=== PATIENT | male | born 1935 | race Two or more races ===

== ENCOUNTER 2024-12-27 02:00 | Inpatient (IN) | payer MEDICARE, OTHER ==
[~2024-12-27] VITALS: Ht 175.3 cm; Wt 90.8 kg
--- NOTE | 2024-12-27 02:14 | ED.PDOC ---
General HPI Comments 89-year-old male currently on Xarelto PT BIBA FOR CC OF PENILE BLEEDING AND URINARY RETENTION X 1 HR. PT REPORTS TAKING XARELTO FOR AFIB. DENIES TRAUMA OR DYSURIA. Chief Complaint: Urinary Time Seen by MD: 02:09 Reviewed notes: Nurses Notes, General Partner Notes, Medications, Allergies Allergies: Coded Allergies: NO KNOWN ALLERGIES (Unverified , 12/27/24) Information Source: Patient Constitutional: denies: chills, diaphoresis, fatigue, fever, malaise, sweats, weakness, others EENTM: denies: blurred vision, double vision, ear bleeding, ear discharge, ear drainage, ear pain, ear ringing, eye pain, eye redness, hearing loss, mouth pain, mouth swelling, nasal discharge, nose bleeding, nose congestion, nose pain, photophobia, tearing, throat pain, throat swelling, voice changes, others Respiratory: denies: cough, hemoptysis, orthopnea, SOB at rest, shortness of breath, SOB with excertion, stridor, wheezing, others Cardiovascular: denies: chest pain, dizzy spells, diaphoresis, Dyspnea on exertion, edema, irregular heart beat, left arm pain, lightheadedness, palpitations, PND, syncope, others Gastrointestinal: denies: abdomen distended, abdominal pain, blood streaked bowels, constipated, diarrhea, dysphagia, difficulty swallowing, hematemesis, melena, nausea, poor appetite, poor fluid intake, rectal bleeding, rectal pain, vomiting, others Genitourinary: reports: hematuria, pain; denies: burning, dysuria, flank pain, frequency, incontinence, penile discharge, penile sore, testicle pain, testicle swelling, urgency, others Neurological: denies: dizziness, fainting, headache, left sided numbness, left sided weakness, numbness, paresthesia, pre-existing deficit, right sided numbness, right sided weakness, seizure, speech problems, tingling, tremors, weakness, others Musculoskeletal: denies: back pain, gout, joint pain, joint swelling, muscle pain, muscle stiffness, neck pain, others Integumetry: denies: bruises, change in color, change in hair/nails, dryness, laceration, lesions, lumps, rash, wounds, others Allergic/Immunocompromised: denies: Difficulty Healing, Frequent Infections, Hives, Itching, others Hematologic/Lymphatic: denies: anemia, blood clots, easy bleeding, easy bruising, swollen glands, others Endocrine: denies: excessive hunger, excessive sweating, excessive thirst, excessive urination, flushing, intolerance to cold, intolerance to heat, unexplained weight gain, unexplained weight loss, others Psychiatric: denies: anxiety, bipolar disorder, depression, hopeless, panic disorder, schizophrenia, sleepless, suicidal, others Physical Exam General Appearance: No Apparent Distress, Normal HEENT: Pharynx Normal Neck: Full Range of Motion, Non-Tender Respiratory: Chest Non-Tender, Lungs Clear, No Respiratory Distress, Normal Breath Sounds Cardiovascular: No Edema, No JVD, No Murmur, No Gallop, Normal Peripheral Pulses, Regular Rate/Rhythm Breast Exam: Deferred Gastrointestinal: No Organomegaly, Non Tender, No Pulsatile Mass, Normal Bowel Sounds, Soft, Suprapubic (Moderate Tenderness) Genitalia: Deferred Pelvic: Deferred Rectal: Deferred Extremities: Normal range of motion, No pedal edema Musculoskeletal : Apperance: Normal Neurologic: Alert, remnants cutter II-XII nml as Tested, No Motor Deficits, Normal Affect, Normal Mood, No Sensory Deficits Cerebellar Function: Normal Reflexes: Normal Skin: Dry, Normal Color, Warm Lymphatic: No Adenopathy Was a procedure done? Was a procedure done?: No Differential Diagnosis Kidney stone (Female): N/A Kidney stone (Male): Pyelonephritis, Urinary obstruction, Urolithiasis, Urinary tract infection X-Ray, Labs, Meds, VS Vital Signs Date Time Temp Pulse Resp B/P (MAP) Pulse Ox O2 Delivery O2 Flow Rate FiO2 12/27/24 04:00 60 20 135/64 (87) 92 12/27/24 02:45 68 14 91 Room Air* 0 21 12/27/24 02:45 98.0 68 14 139/61 (87) 91 98.0 12/27/24 02:02 98.7 83 18 140/88 (105) 98 98.7 Lab Test 12/27/24 03:10 12/27/24 02:15 Range/Units Urine Color Colorless Yellow Urine Clarity Turbid H Clear Urine pH 6.5 5.0-9.0 Urine Specific [place] 1.010 1.001-1.035 Urine Protein Trace H Negative Urine Ketones Negative Negative Urine Blood 3+ H Negative /uL Urine Nitrite 2+ H Negative Urine Bilirubin Negative Negative Urine Urobilinogen Normal Negative mg/dL Urine Leukocyte Esterase 2+ Negative /uL Urine RBC 4702 0 - 3 /hpf Urine Microscopic WBC 18 H 0-3 /HPF Urine Squamous Epithelial Cells None seen <5 /hpf Urine Bacteria None seen None Seen /hpf Urine Mucus Few None Seen Urine Glucose Normal Normal mg/dL White Blood Count 7.0 4.4-10.8 10^3/uL Red Blood Count 5.40 4.5-5.90 10^6/uL Hemoglobin 15.7 13.5-17.5 g/dL Hematocrit 46.7 41.0-53.0 % Mean Corpuscular Volume 86.5 80.0-100.0 fL Mean Corpuscular Hemoglobin 29.0 28.0-32.0 pg Mean Corpuscular Hemoglobin Concent 33.6 32.0-36.0 g/dL Red Cell Distribution Width 15.0 H 11.8-14.3 % Platelet Count 182 140-450 10^3/uL Mean Platelet Volume 7.5 6.9-10.8 fL Neutrophils (%) (Auto) 64.3 37.0-80.0 % Lymphocytes (%) (Auto) 21.2 10.0-50.0 % Monocytes (%) (Auto) 8.8 0.0-12.0 % Eosinophils (%) (Auto) 4.6 0.0-7.0 % Basophils (%) (Auto) 1.1 0.0-2.0 % Neutrophils # (Auto) 4.5 1.6-8.6 10 ^3/uL Lymphocytes # (Auto) 1.5 0.4-5.4 10 ^3/uL Monocytes # (Auto) 0.6 0-1.3 10 ^3/uL Eosinophils # (Auto) 0.3 0-0.8 10 ^3/uL Basophils # (Auto) 0.1 0-0.2 10 ^3/uL Nucleated Red Blood Cells 0.1 % Sodium Level 142 136-145 mmol/L Potassium Level 3.6 3.5-5.1 mmol/L Chloride Level 105 98-107 mmol/L Carbon Dioxide Level 29 20-31 mmol/L Anion Gap 8 5-15 Blood Urea Nitrogen 18 9-23 mg/dL Creatinine 0.82 0.700-1.30 mg/dL Glomerular Filtration Rate Calc 84 >90 mL/min BUN/Creatinine Ratio 22.0 H 10.0-20.0 Serum Glucose 100 74-106 mg/dL Hemoglobin A1c Pending Calcium Level 9.3 8.7-10.4 mg/dL Total Bilirubin 0.6 0.2-1.0 mg/dL Aspartate Amino Transferase (AST) 19 13-40 U/L Alanine Aminotransferase (ALT) 12 7-40 U/L Alkaline Phosphatase 294 H 46-116 U/L Total Protein 6.6 5.7-8.2 g/dL Albumin 4.1 3.2-4.8 g/dL Current Medications Medications (Trade) Dose Ordered Sig/Brandy Route Start Time Stop Time Status Last Admin Ceftriaxone Sodium 50 ml @ 100 mls/hr ONCE ONCE IV 12/27/24 03:45 12/27/24 04:14 DC 12/27/24 04:06 X-Ray, Labs, Meds, VS Comment Admit for urology consult cystitis with gross hematuria. Time of 1ST Reevaluation: 02:12 Reevaluation 1ST: Unchanged Time of 2ND Reevaluation: 04:30 Reevaluation 2ND: Unchanged Patient Education/Counseling: Diagnosis, Treatment, Prognosis, Need For Follow Up Family Education/Counseling: No Family Present Departure 1 Departure Time of Disposition: 03:40 Impression: Primary Impression: Cystitis with hematuria Additional Impression: Hx of half-way use of blood thinners Disposition: 09 ADMITTED INPATIENT Condition: Stable Discharged With: Self Critical Care Note Critical Care Time?: No Stability Stability form required: SAY Wray December 27, 2024 02:14
[2024-12-27 02:37] LABS: Basophils # (auto) 0.1 10 ^3/uL (0-0.2); Basophils % (auto) 1.1 % (0.0-2.0); Eosinophils # (auto) 0.3 10 ^3/uL (0-0.8); Eosinophils % (auto) 4.6 % (0.0-7.0); Hematocrit 46.7 % (41.0-53.0); Hemoglobin 15.7 g/dL (13.5-17.5); Lymphocytes # (auto) 1.5 10 ^3/uL (0.4-5.4); Lymphocytes % (auto) 21.2 % (10.0-50.0); Mean Corpuscular Hgb Conc. 33.6 g/dL (32.0-36.0); Mean Corpuscular Volume 86.5 fL (80.0-100.0); Monocytes # (auto) 0.6 10 ^3/uL (0-1.3); Monocytes % (auto) 8.8 % (0.0-12.0); Neutrophils # (auto) 4.5 10 ^3/uL (1.6-8.6); Neutrophils % (auto) 64.3 % (37.0-80.0); Nucleated Red Blood Cells % 0.1 %; Platelet Count (auto) 182 10^3/uL (140-450)
[2024-12-27 02:45] VITALS: PULSE 68; RESP 14; O2SAT 91
[2024-12-27 02:46] LABS: Alanine Aminotransferase 12 U/L (7-40); Albumin 4.1 g/dL (3.2-4.8); Anion Gap 8 (5-15); Aspartate Aminotransferase 19 U/L (13-40); Bilirubin, Total 0.6 mg/dL (0.2-1.0); Blood Urea Nitrogen 18 mg/dL (9-23); Calcium 9.3 mg/dL (8.7-10.4); Carbon Dioxide 29 mmol/L (20-31); Chloride 105 mmol/L (98-107); Glucose 100 mg/dL (74-106); Potassium 3.6 mmol/L (3.5-5.1); Sodium 142 mmol/L (136-145); Total Protein 6.6 g/dL (5.7-8.2)
[2024-12-27 02:52] LABS: Alkaline Phosphatase 294 U/L (46-116)
[2024-12-27 03:16] LABS: Urine Bacteria None Seen /hpf (None Seen)
[2024-12-27 03:25] LABS: Urine Blood 3+ /uL (Negative); Urine Clarity Turbid (Clear); Urine Color Colorless (Yellow); Urine Mucus FEW (None Seen); Urine Protein, UAD TRACE (Negative); Urine Squamous Epithelial Cell None Seen /hpf (<5); Urine Urobilinogen Normal (Negative); Urine WBC 18 /HPF (0-3); Urine pH 6.5 (5.0-9.0)
[2024-12-27] MEDS: cefTRIAXone 1GM/50ML D5W 50 ML IV ONE (04:06)
[2024-12-27] MEDS ORDERED: DEXTROSE (50%) 50ML SYRG IV PRN (05:00)
[2024-12-27] MEDS ORDERED: HYDROcodone-ACET 5/325MG TAB PO PRN (05:00)
[2024-12-27] MEDS ORDERED: MORPHINE SULFATE INJ 2 MG/ml SYRG IV PRN (05:30)
[2024-12-27] MEDS ORDERED: NITROGLYCERIN 0.4 MG SL TAB SL PRN (05:30)
--- NOTE | 2024-12-27 05:32 | DVHHP2 ---
History of Present Illness Reason for Visit: Cystitis with hematuria History of Present Illness The patient is a 89-year-old male with past medical history of AFib, hypertension, hyperlipidemia, and vascular disease who presented to [facility] ED with complaint of penile bleeding urinary retention. The patient was seen and evaluated in the ED, laboratory data shows WBC 7.0, platelets 182, sodium 142, potassium 3.6, BUN 18, creatinine 0.82, glucose 100, blood pressure 139/69, heart rate 68, temperature 98.0 F, O2 saturation 91% on oxygen. Urinalysis positive for urinary tract infection. Patient was started on IV Rocephin, please see medication orders section in the computer. On my assessment, patient denied chest pain, no headache, no dizziness, no diaphoresis, currently on oxygen, no diarrhea, no nausea, no vomiting, no fever, no chills. Patient was admitted for further evaluation and medical management. Past Medical History AFib, HLD, HTN, vascular disease Past Surgical History Denies all surgeries Family History Reviewed, noncontributory to the management of this case. Past Social History The patient lives at home, denies smoking, alcohol or illicit drugs abuse. Review of Systems Constitutional: Yes: Weakness; No: Fever, Chills, Sweats, Malaise, Other Eyes: No: Pain, Vision change, Conjunctivae inflammation, Eyelid inflammation, Other, Redness ENT: No: Ear pain, Ear discharge, Nose pain, Nose discharge, Nose congestion, Mouth pain, Mouth swelling, Throat pain, Throat swelling, Other Respiratory: No: Cough, Dry, Shortness of breath, SOB with excertion, Wheezing, Hemoptysis, Pleuritic Pain, Sputum, Wheezing, Other Cardiovascular: No: Chest Pain, Palpitations, Orthopnea, Paroxysmal Noc. Dyspnea, Edema, Lt Headedness, Other Gastrointestinal: No: Nausea, Vomiting, Abdominal Pain, Diarrhea, Constipation, Melena, Hematochezia, Other Genitourinary: Dysuria; No Frequency, No Incontinence; Hematuria; No Retention, No Other Musculoskeletal: No: other, neck pain, shoulder pain, arm pain, back pain, hand pain, leg pain, foot pain Skin: No: Rash, Lesions, Jaundice, Bruising, Other Neurological: No: Weakness, Numbness, Incoordination, Change in speech, Confusion, Seizures, Other Allergies: Coded Allergies: NO KNOWN ALLERGIES (Unverified , 12/27/24) Medications Current Medications Medications Dose Ordered Sig/Brandy Route Start Time Stop Time Status Last Admin Dose Admin Ceftriaxone Sodium 50 ml @ 100 mls/hr DAILY@09 IV 12/27/24 09:00 Lisinopril 20 mg DAILY PO 12/27/24 10:00 Tamsulosin HCl 0.4 mg QPM PO 12/27/24 18:00 Atorvastatin Calcium 40 mg HS PO 12/27/24 22:00 Rivaroxaban 20 mg DAILY PO 12/27/24 10:00 Bumetanide 0.5 mg BIDD PO 12/27/24 06:00 Insulin Human Regular HS SC 12/27/24 22:00 Sodium Chloride 10 ml Q8HR IV 12/27/24 06:00 Acetaminophen/ Hydrocodone Bitart 1 tab Q4HP PRN PO 12/27/24 05:00 Ondansetron HCl 4 mg Q4HP PRN IV 12/27/24 05:00 Docusate Sodium 100 mg BIDPRN PRN PO 12/27/24 05:00 Acetaminophen 650 mg Q6HP PRN PO 12/27/24 05:00 Exam Vital Signs Vital Signs Date Time Temp Pulse Resp B/P (MAP) Pulse Ox O2 Delivery O2 Flow Rate FiO2 12/27/24 04:00 60 20 135/64 (87) 92 12/27/24 02:45 Room Air* 0 21 12/27/24 02:45 98.0 98.0 General Appearance: Alert, Oriented X3, Cooperative, No acute distress HEENT: Atraumatic, PERRLA, EOMI, Mucous membr. moist/pink Respiratory: Clear to auscultation, Normal air movement Cardiovascular: Regular rate, Normal S1, Normal S2, No murmurs Abdominal: Normal bowel sounds, Soft, No tenderness, No hepatospenomegaly, No masses Extremities: No clubbing, No cyanosis, No edema, Normal pulses, No tenderness/swelling Skin: No rashes, No breakdown, No significant lesion Neuro: Normal speech, Normal tone, Sensation intact, Cranial nerves 3-12 NL, Reflexes 2+, Other (Generalized weakness) Psych/Mental Status: Mental status NL, Mood NL Labs/Xrays Labs Test 12/27/24 03:10 12/27/24 02:15 Range/Units Urine Color Colorless Yellow Urine Clarity Turbid H Clear Urine pH 6.5 5.0-9.0 Urine Specific [place] 1.010 1.001-1.035 Urine Protein Trace H Negative Urine Ketones Negative Negative Urine Blood 3+ H Negative /uL Urine Nitrite 2+ H Negative Urine Bilirubin Negative Negative Urine Urobilinogen Normal Negative mg/dL Urine Leukocyte Esterase 2+ Negative /uL Urine RBC 4702 0 - 3 /hpf Urine Microscopic WBC 18 H 0-3 /HPF Urine Squamous Epithelial Cells None seen <5 /hpf Urine Bacteria None seen None Seen /hpf Urine Mucus Few None Seen Urine Glucose Normal Normal mg/dL White Blood Count 7.0 4.4-10.8 10^3/uL Red Blood Count 5.40 4.5-5.90 10^6/uL Hemoglobin 15.7 13.5-17.5 g/dL Hematocrit 46.7 41.0-53.0 % Mean Corpuscular Volume 86.5 80.0-100.0 fL Mean Corpuscular Hemoglobin 29.0 28.0-32.0 pg Mean Corpuscular Hemoglobin Concent 33.6 32.0-36.0 g/dL Red Cell Distribution Width 15.0 H 11.8-14.3 % Platelet Count 182 140-450 10^3/uL Mean Platelet Volume 7.5 6.9-10.8 fL Neutrophils (%) (Auto) 64.3 37.0-80.0 % Lymphocytes (%) (Auto) 21.2 10.0-50.0 % Monocytes (%) (Auto) 8.8 0.0-12.0 % Eosinophils (%) (Auto) 4.6 0.0-7.0 % Basophils (%) (Auto) 1.1 0.0-2.0 % Neutrophils # (Auto) 4.5 1.6-8.6 10 ^3/uL Lymphocytes # (Auto) 1.5 0.4-5.4 10 ^3/uL Monocytes # (Auto) 0.6 0-1.3 10 ^3/uL Eosinophils # (Auto) 0.3 0-0.8 10 ^3/uL Basophils # (Auto) 0.1 0-0.2 10 ^3/uL Nucleated Red Blood Cells 0.1 % Sodium Level 142 136-145 mmol/L Potassium Level 3.6 3.5-5.1 mmol/L Chloride Level 105 98-107 mmol/L Carbon Dioxide Level 29 20-31 mmol/L Anion Gap 8 5-15 Blood Urea Nitrogen 18 9-23 mg/dL Creatinine 0.82 0.700-1.30 mg/dL Glomerular Filtration Rate Calc 84 >90 mL/min BUN/Creatinine Ratio 22.0 H 10.0-20.0 Serum Glucose 100 74-106 mg/dL Hemoglobin A1c 5.7 <5.7 % A1C Calcium Level 9.3 8.7-10.4 mg/dL Total Bilirubin 0.6 0.2-1.0 mg/dL Aspartate Amino Transferase (AST) 19 13-40 U/L Alanine Aminotransferase (ALT) 12 7-40 U/L Alkaline Phosphatase 294 H 46-116 U/L Total Protein 6.6 5.7-8.2 g/dL Albumin 4.1 3.2-4.8 g/dL Assessment/Plan Assessment/Plan Cystitis with hematuria Urinary tract infection Generalized weakness Hx of shelter use of blood thinners Plan 1. Admit to telemetry unit 2. Breathing treatment 3. Pain control management 4. IV antibiotic management 5. Management of fluids and electrolytes 6. Consultation for hospitalist 7. Diagnostic test chest x-ray 8. DVT prophylaxis-on Xarelto 9. Repeat labs CBC, CMP in a.m. 10. Home medication reviewed and reconciled 11. Continue with current medical management 12. Treatment plan discussed with patient and RN. Patient verbalized understanding. Plan discussed with: Patient, Other (RN) My Orders Orders - ANGI URBINA DNP Procedure Category Date Status Time Ceftriaxone 1gm/50ml PHA 12/27/24 In Process D5w (Rocephin) 09:00 Lisinopril Tablet PHA 12/27/24 In Process (Zestril Tablet) 10:00 Tamsulosin PHA 12/27/24 In Process Hydrochloride (Flomax) 18:00 Atorvastatin (Lipitor) PHA 12/27/24 In Process 22:00 B-Type Natriuretic LAB 12/27/24 In Process Peptide 04:47 Rivaroxaban Tablet PHA 12/27/24 In Process (Xarelto Tablet) 10:00 Bumetanide Tablet PHA 12/27/24 In Process (Bumex Tablet) 06:00 Urine Bacterial KENA 12/27/24 In Process Culture 04:47 Insulin R (Human) PHA 12/27/24 In Process (Insulin R) 22:00 Allergies ANITRA 12/27/24 In Process 04:47 Code Status CODE 12/27/24 Transmitted 04:47 Sodium Chloride Lock PHA 12/27/24 In Process (Saline Lock Ns) 06:00 Oxygen Per Hour RT 12/27/24 Transmitted 04:47 Hydrocodone-Acet PHA 12/27/24 In Process 5/325mg Tab ([place] 05:00 Ondansetron Hcl PHA 12/27/24 In Process (Zofran) 05:00 Docusate Sodium PHA 12/27/24 In Process Capsule ([place] 05:00 Fall Risk Precautions ANITRA 12/27/[address] 04:47 Complete Blood Count LAB 12/28/24 Verified 04:00 Comprehensive LAB 12/28/24 Verified Metabolic Panel 04:00 Condition: Serious ANITRA 12/27/24 In Process 04:47 Acetaminophen Tablet PHA 12/27/24 In Process (Tylenol Tablet) 05:00 Bedrest With Bathroom ANITRA 12/27/24 In Process Privileg 04:47 Sequential ANITRA 12/27/24 In Process Compression Device Problem List: (1) Cystitis with hematuria (2) Urinary tract infection (3) Generalized weakness (4) Hx of shelter use of blood thinners Date of Service: December 27, 2024 Billing Provider: ANGI URBINA DNP Common Visit Codes: [id number] INP/OBS CARE (HIGH) ANGI URBINA DNP December 27, 2024 05:32
[2024-12-27] MEDS: SODIUM CHLOR 0.9% PF (SALINE LOCK) 10ML VIAL/SYR IV SCH (05:50)
[2024-12-27] MEDS: BUMETANIDE 1 MG TAB PO SCH (05:50)
[2024-12-27] MEDS: ACETAMINOPHEN 325 MG TAB PO PRN (06:13)
[2024-12-27] MEDS: ONDANSETRON HCL 4 MG/2 ML VIAL IV PRN (06:13)
[2024-12-27] MEDS ORDERED: InsuLIN REG 1unit/0.01ml Soln (100units/ml) SC SCH ×2 (07:00→22:00)
[2024-12-27] MEDS ORDERED: ACCU-CHEK COMFORT CURVE STRIP VI SCH (07:00)
[2024-12-27] MEDS: LISINOPRIL 20 MG TAB PO SCH (10:00)
[2024-12-27] MEDS: RIVAROXABAN 20 MG TAB PO SCH (10:12)
[2024-12-27] MEDS: cefTRIAXone 1GM/50ML D5W 50 ML IV SCH (10:12)
--- NOTE | 2024-12-27 11:55 | DVHPN2 ---
Reviewed: Care Plan, H&P, Labs, Medications, Previous Orders, Radiology Changes from previous H/P or p: No Changes Eyes: No Pain, No Vision change, No Conjunctivae inflammation, No Eyelid inflammation, No Other, No Redness ENT: No Ear pain, No Ear discharge, No Nose pain, No Nose discharge, No Nose congestion, No Mouth pain, No Mouth swelling, No Throat pain, No Throat swelling, No Other Cardiovascular: No Chest Pain, No Palpitations, No Orthopnea, No Paroxysmal Noc. Dyspnea, No Edema, No Lt Headedness, No Other Respiratory: No Cough, No Dry, No Shortness of breath, No SOB with excertion, No Wheezing, No Hemoptysis, No Pleuritic Pain, No Sputum, No Other Gastrointestinal: No Nausea, No Vomiting, No Abdominal Pain, No Diarrhea, No Constipation, No Melena, No Hematochezia, No Other Genitourinary: Dysuria; No Frequency, No Incontinence; Hematuria; No Retention, No Other Musculoskeletal: No other, No neck pain, No shoulder pain, No arm pain, No back pain, No hand pain, No leg pain, No foot pain Skin: No Rash, No Lesions, No Jaundice, No Bruising, No Other Objective Vitals Vital Signs Date Time Temp Pulse Resp B/P (MAP) Pulse Ox O2 Delivery O2 Flow Rate FiO2 12/27/24 10:00 87/54 12/27/24 08:00 105 12/27/24 06:00 28 95 12/27/24 02:45 Room Air* 0 21 12/27/24 02:45 98.0 98.0 Intake/Output Intake and Output 12/27/24 07:00 Intake Total 50 ml Balance 50 ml Intake IV Total 50 ml Medications Current Medications Medications Dose Ordered Sig/Brandy Route Start Time Stop Time Status Last Admin Dose Admin Ceftriaxone Sodium 50 ml @ 100 mls/hr DAILY@09 IV 12/27/24 09:00 12/27/24 10:12 100 MLS/HR Lisinopril 20 mg DAILY PO 12/27/24 10:00 Tamsulosin HCl 0.4 mg QPM PO 12/27/24 18:00 Atorvastatin Calcium 40 mg HS PO 12/27/24 22:00 Rivaroxaban 20 mg DAILY PO 12/27/24 10:00 12/27/24 10:12 20 MG Bumetanide 0.5 mg BIDD PO 12/27/24 06:00 12/27/24 05:50 0.5 MG Sodium Chloride 10 ml Q8HR IV 12/27/24 06:00 12/27/24 05:50 10 ML Acetaminophen/ Hydrocodone Bitart 1 tab Q4HP PRN PO 12/27/24 05:00 Ondansetron HCl 4 mg Q4HP PRN IV 12/27/24 05:00 12/27/24 06:13 4 MG Docusate Sodium 100 mg BIDPRN PRN PO 12/27/24 05:00 Acetaminophen 650 mg Q6HP PRN PO 12/27/24 05:00 12/27/24 06:13 650 MG Nitroglycerin 0.4 mg Q5MINP PRN SL 12/27/24 05:30 Morphine Sulfate 2 mg Q30M PRN IV 12/27/24 05:30 Laboratory Results Laboratory Tests 12/27/24 02:15 Chemistry Test 12/27/24 02:15 Albumin 4.1 g/dL (3.2-4.8) Calcium Level 9.3 mg/dL (8.7-10.4) Total Protein 6.6 g/dL (5.7-8.2) Cardiac Markers Test 12/27/24 02:15 B-Type Natriuretic Peptide 92.59 pg/mL (0-100) LFT Test 12/27/24 02:15 Alanine Aminotransferase (ALT) 12 U/L (7-40) Alkaline Phosphatase 294 U/L (46-116) H Aspartate Amino Transferase (AST) 19 U/L (13-40) Total Bilirubin 0.6 mg/dL (0.2-1.0) HgA1c, TSH Test 12/27/24 02:15 Hemoglobin A1c 5.7 % A1C (<5.7) Urinalysis Test 12/27/24 03:10 Urine Color Colorless (Yellow) Urine Clarity Turbid (Clear) H Urine pH 6.5 (5.0-9.0) Urine Specific [place] 1.010 (1.001-1.035) Urine Protein Trace (Negative) H Urine Ketones Negative (Negative) Urine Blood 3+ /uL (Negative) H Urine Nitrite 2+ (Negative) H Urine Bilirubin Negative (Negative) Urine Urobilinogen Normal mg/dL (Negative) Urine Leukocyte Esterase 2+ /uL (Negative) Urine RBC 4702 /hpf (0 - 3) Urine Microscopic WBC 18 /HPF (0-3) H Urine Squamous Epithelial Cells None seen /hpf (<5) Urine Bacteria None seen /hpf (None Seen) Urine Mucus Few (None Seen) Urine Glucose Normal mg/dL (Normal) Labs and/or images reviewed: Labs reviewed by me, Image(s) reviewed by me Assessment/Plan Assessment/Plan Hematuria Acute urinary tract infection: Blood cultures urine cultures Rocephin Acute generalized weakness History of long-term use of blood thinners AFib on Xarelto 20 mg p.o. daily Hypertension: Lisinopril Hypercholesterolemia: Lipitor On magnesium oxide 500 mg p.o. 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 Lock Test Lead Application Testing: Dr Delarosa Plan discussed with: Patient My Orders Orders - ANGEL LUNA MD Procedure Category Date Status Time PTPTT LAB 12/27/24 Logged 11:43 Date of Service: December 27, 2024 Billing Provider: ANGEL LUNA MD Common Visit Codes: [id number] CARE 30-74 MIN ANGEL LUNA MD December 27, 2024 11:55
[2024-12-27 12:23] VITALS: BP 100/44; PULSE 76; RESP 17; TEMP 98; O2SAT 94
[2024-12-27 12:25] VITALS: BP 100/44; PULSE 76; RESP 17; TEMP 98; O2SAT 94
[2024-12-27 12:51] LABS: INR 1.54 (0.9-1.15); Partial Thromboplastin Time 35.9 SEC (24.5-34.5); Prothrombin Time 15.6 sec (9.3-11.8)
--- NOTE | 2024-12-27 12:59 | DVH ---
CT CT AB PEL WO CON-NO ORAL OR IV INDICATION: Hematuria EXAM DATE: 12/27/2024 11:59 AM COMPARISON: None RADIATION DOSE: CTDIvol: 17.87 mGy, DLP: 913.59 mGy*cm PROCEDURE: Helical CT images were obtained of the abdomen and pelvis without IV contrast Sagittal and coronal reconstructions are provided. ORAL CONTRAST: None. ADDITIONAL IMAGES / REFORMATS: None All C T scans at this medical facility are performed using dose modulation techniques as appropriate to a p erformed exam including the following: Automated exposure control was utilized; adjustment of the MA and/or KV according to patient size; and use of iterative reconstruction technique. FINDINGS: LUNG BASE: Emphysema changes is seen in the lungs. There is bibasilar atelectasis. Punctate calcific ations are seen at the subpleural area of the lung anteriorly. LIVER: Normal. GALLBLADDER AND BILIARY TREE: There is a gallstone in the gallbladder.No intra- or extrahepatic bilia ry ductal dilation. PANCREAS: Normal. SPLEEN: Normal. BOWEL: There is severe colonic diverticulosis. ADRENALS: Normal. KIDNEYS AND URETER: Bilateral kidneys cysts are seen some of which are proteinaceous or hemorrhagic i n nature and some of which contain punctate calcifications in the frausto. BLADDER: Normal. REPRODUCTIVE ORGANS: Enlarged prostate. LYMPH NODES:No lymphadenopathy. PERITONEUM: No ascites or free air. No other fluid collection. VESSELS: Scattered atherosclerotic calcifications are noted. 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 RETROPERITONEUM: Normal. ABDOMINAL WALL: There is a left lateral ventral abdominal wall hernia containing fat. There is a righ t lateral ventral abdominal wall hernia containing loops of nondilated bowel. BONES: Scattered osseous degenerative changes are noted. Irregular ossification of the sacrum and lef t hemipelvis which could be seen with osteopenia and possible sacral insufficiency fracture, with oth er etiologies not excluded. IMPRESSION: No acute intraabdominal abnormality. No kidney stones stones are seen. Cholelithiasis Bilateral kidneys cysts are seen some of which are proteinaceous or hemorrhagic in nature and some of which contain punctate calcifications in the frausto. 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 Irregular ossification of the sacrum and left hemipelvis which could be seen with osteopenia and poss ible sacral insufficiency fracture, with other etiologies not excluded. There is a left lateral ventral abdominal wall hernia containing fat. There is a right lateral ventra l abdominal wall hernia containing loops of nondilated bowel.
[2024-12-27] MEDS ORDERED: CARV3.1240 PO (13:24)
[2024-12-27] MEDS ORDERED: ATOR40TA52 PO (13:24)
[2024-12-27] MEDS ORDERED: MAGN250T3 PO (13:24)
[2024-12-27] MEDS ORDERED: RIVA20TA PO (13:24)
[2024-12-27] MEDS ORDERED: TAMS1CAP25 PO (13:24)
[2024-12-27] MEDS ORDERED: ASPI-543 PO (13:24)
[2024-12-27] MEDS ORDERED: ASCO500T11 PO (13:24)
[2024-12-27] MEDS ORDERED: LISI20TA56 PO (13:24)
[2024-12-27] MEDS ORDERED: BUMEX2MG PO (13:24)
[2024-12-27 17:00] VITALS: BP 130/76; PULSE 85; RESP 16; TEMP 99.3; O2SAT 96
[2024-12-27] MEDS: TAMSULOSIN HYDROCHLORIDE 0.4 MG CAP PO SCH (17:24)
[2024-12-27 20:00] VITALS: PULSE 86
[2024-12-27] MEDS: ATORVASTATIN 20 MG TAB PO SCH (21:13)
[2024-12-27 21:22] VITALS: BP 108/62; PULSE 77; RESP 18; TEMP 98.9; O2SAT 94
[2024-12-28] VITALS (8 sets, daily range): BP systolic 111–148; BP diastolic 73–80; PULSE 56–78; RESP 17–18; TEMP 97.7–99.2; O2SAT 95–98
[2024-12-28 06:28] LABS: Basophils # (auto) 0 10 ^3/uL (0-0.2); Basophils % (auto) 0.3 % (0.0-2.0); Eosinophils # (auto) 0 10 ^3/uL (0-0.8); Eosinophils % (auto) 0.5 % (0.0-7.0); Hematocrit 42.1 % (41.0-53.0); Hemoglobin 14.3 g/dL (13.5-17.5); Lymphocytes # (auto) 0.5 10 ^3/uL (0.4-5.4); Lymphocytes % (auto) 6.2 % (10.0-50.0); Mean Corpuscular Hemoglobin 29.5 pg (28.0-32.0); Mean Corpuscular Hgb Conc. 33.9 g/dL (32.0-36.0); Mean Corpuscular Volume 86.8 fL (80.0-100.0); Monocytes # (auto) 0.5 10 ^3/uL (0-1.3); Monocytes % (auto) 6.6 % (0.0-12.0); Neutrophils % (auto) 86.4 % (37.0-80.0); Platelet Count (auto) 129 10^3/uL (140-450); Red Blood Cells 4.85 10^6/uL (4.5-5.90); Red Cell Distribution Width 15.1 % (11.8-14.3); White Blood Cell 8.1 10^3/uL (4.4-10.8)
[2024-12-28 06:45] LABS: Alanine Aminotransferase 11 U/L (7-40); Anion Gap 5 (5-15); Aspartate Aminotransferase 22 U/L (13-40); Blood Urea Nitrogen 17 mg/dL (9-23); Calcium 9.1 mg/dL (8.7-10.4); Carbon Dioxide 27 mmol/L (20-31); Glucose 105 mg/dL (74-106); Sodium 139 mmol/L (136-145); Total Protein 5.8 g/dL (5.7-8.2)
[2024-12-28 06:46] LABS: Albumin 3.6 g/dL (3.2-4.8); Alkaline Phosphatase 230 U/L (46-116); Bilirubin, Total 0.7 mg/dL (0.2-1.0); Chloride 107 mmol/L (98-107); Potassium 3.5 mmol/L (3.5-5.1)
--- NOTE | 2024-12-28 12:28 | DVHPN2 ---
Reviewed: Care Plan, H&P, Labs, Medications, Previous Orders, Radiology Changes from previous H/P or p: No Changes Eyes: No Pain, No Vision change, No Conjunctivae inflammation, No Eyelid inflammation, No Other, No Redness ENT: No Ear pain, No Ear discharge, No Nose pain, No Nose discharge, No Nose congestion, No Mouth pain, No Mouth swelling, No Throat pain, No Throat swelling, No Other Cardiovascular: No Chest Pain, No Palpitations, No Orthopnea, No Paroxysmal Noc. Dyspnea, No Edema, No Lt Headedness, No Other Respiratory: No Cough, No Dry, No Shortness of breath, No SOB with excertion, No Wheezing, No Hemoptysis, No Pleuritic Pain, No Sputum, No Other Gastrointestinal: No Nausea, No Vomiting, No Abdominal Pain, No Diarrhea, No Constipation, No Melena, No Hematochezia, No Other Genitourinary: Dysuria; No Frequency, No Incontinence; Hematuria; No Retention, No Other Musculoskeletal: No other, No neck pain, No shoulder pain, No arm pain, No back pain, No hand pain, No leg pain, No foot pain Skin: No Rash, No Lesions, No Jaundice, No Bruising, No Other Objective Vitals Vital Signs Date Time Temp Pulse Resp B/P (MAP) Pulse Ox O2 Delivery O2 Flow Rate FiO2 12/28/24 09:58 127/80 12/28/24 09:00 98.3 63 17 97 98.3 12/28/24 08:00 Nasal Cannula* 2 28 Intake/Output Intake and Output 12/28/24 07:00 Intake Total 450 ml Output Total 600 ml Balance -150 ml Intake Oral 450 ml Output Urine Total 600 ml Medications Current Medications Medications Dose Ordered Sig/Brandy Route Start Time Stop Time Status Last Admin Dose Admin Ceftriaxone Sodium 50 ml @ 100 mls/hr DAILY@09 IV 12/27/24 09:00 12/28/24 09:58 100 MLS/HR Lisinopril 20 mg DAILY PO 12/27/24 10:00 12/28/24 09:58 20 MG Tamsulosin HCl 0.4 mg QPM PO 12/27/24 18:00 12/27/24 17:24 0.4 MG Atorvastatin Calcium 40 mg HS PO 12/27/24 22:00 12/27/24 21:13 40 MG Bumetanide 0.5 mg BIDD PO 12/27/24 06:00 12/28/24 05:29 0.5 MG Sodium Chloride 10 ml Q8HR IV 12/27/24 06:00 12/28/24 05:29 10 ML Acetaminophen/ Hydrocodone Bitart 1 tab Q4HP PRN PO 12/27/24 05:00 Ondansetron HCl 4 mg Q4HP PRN IV 12/27/24 05:00 12/27/24 06:13 4 MG Docusate Sodium 100 mg BIDPRN PRN PO 12/27/24 05:00 Acetaminophen 650 mg Q6HP PRN PO 12/27/24 05:00 12/27/24 06:13 650 MG Nitroglycerin 0.4 mg Q5MINP PRN SL 12/27/24 05:30 Morphine Sulfate 2 mg Q30M PRN IV 12/27/24 05:30 Laboratory Results Laboratory Tests 12/28/24 05:52 Chemistry Test 12/28/24 05:52 Albumin 3.6 g/dL (3.2-4.8) Calcium Level 9.1 mg/dL (8.7-10.4) Total Protein 5.8 g/dL (5.7-8.2) Coagulation Test 12/27/24 12:22 Prothrombin Time 15.6 sec (9.3-11.8) H Prothrombin Time INR 1.54 (0.9-1.15) H Activated Partial Thromboplast Time 35.9 SEC (24.5-34.5) H LFT Test 12/28/24 05:52 Alanine Aminotransferase (ALT) 11 U/L (7-40) Alkaline Phosphatase 230 U/L (46-116) H Aspartate Amino Transferase (AST) 22 U/L (13-40) Total Bilirubin 0.7 mg/dL (0.2-1.0) Urinalysis Test 12/27/24 03:10 Urine Color Colorless (Yellow) Urine Clarity Turbid (Clear) H Urine pH 6.5 (5.0-9.0) Urine Specific [place] 1.010 (1.001-1.035) Urine Protein Trace (Negative) H Urine Ketones Negative (Negative) Urine Blood 3+ /uL (Negative) H Urine Nitrite 2+ (Negative) H Urine Bilirubin Negative (Negative) Urine Urobilinogen Normal mg/dL (Negative) Urine Leukocyte Esterase 2+ /uL (Negative) Urine RBC 4702 /hpf (0 - 3) Urine Microscopic WBC 18 /HPF (0-3) H Urine Squamous Epithelial Cells None seen /hpf (<5) Urine Bacteria None seen /hpf (None Seen) Urine Mucus Few (None Seen) Urine Glucose Normal mg/dL (Normal) Microbiology Microbiology Date/Time Source Procedure Growth Status 12/27/24 03:10 Voided Urine Urine Culture - Preliminary Resulted Labs and/or images reviewed: Labs reviewed by me, Image(s) reviewed by me Assessment/Plan Assessment/Plan Hematuria urology consult for Dr. 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 daily Hypertension: Lisinopril Hypercholesterolemia: Lipitor On magnesium oxide 500 mg p.o. 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 [employer] Sales Representative: Dr Delarosa Plan discussed with: Patient My Orders Orders - ANGEL LUNA MD Procedure Category Date Status Time Acute Hepatitis Panel LAB 12/27/24 In Process 13:24 * Cutter [employer] Drum CONS 12/27/24 Transmitted Consult Date of Service: Dec 28, 2024 Billing Provider: ANGEL LUNA MD Common Visit Codes: [id number] INP/OBS CARE(HIGH) ANGEL LUNA MD Dec 28, 2024 12:28
--- NOTE | 2024-12-28 13:17 | DVHINCON2 ---
Date of service: Dec 28, [address] Luna Reason for Consultation gross hematuria History of Present Illness History Source: RN Notes, MD Notes Exam Limitations: No limitations HPI 89-year-old male with past medical history of AFib, hypertension, hyperlipidemia, and vascular disease who presented to [facility] ED with complaint of penile bleeding urinary retention. The patient was seen and evaluated in the ED, laboratory data shows WBC 7.0, platelets 182, sodium 142, potassium 3.6, BUN 18, creatinine 0.82, glucose 100, blood pressure 139/69, heart rate 68, temperature 98.0 F, O2 saturation 91% on oxygen. Urinalysis positive for urinary tract infection. Home Meds Reported Medications Aspirin (Aspir-Low) 81 Mg Tab, 81 MG PO BID for 30 Days, MG 12/27/24 Ascorbic Acid (VITAMIN C TABLET) 500 Mg Tb, 1 TAB PO BID, #60 TAB 12/27/24 Magnesium (Magnesium 250 mg) 1 Tab Tab, 2 TAB PO HS, TAB 12/27/24 Atorvastatin Calcium (ATORVASTATIN CALCIUM) 40 Mg Tab, 1 TAB PO HS, #30 TAB 5 Refills 12/27/24 Lisinopril (Lisinopril) 20 Mg Tab, 20 MG PO DAILY for 30 Days, MG 12/27/24 Tamsulosin HCl (Tamsulosin Hydrochloride) 0.4 Mg Cap, 0.4 MG PO DAILY, CAP 12/27/24 Bumetanide (Bumex) 2 Mg Tab, MG PO 12/27/24 Carvedilol (Carvedilol) 3.125 Mg Tab, 3.125 MG PO BID for 30 Days, MG 12/27/24 Rivaroxaban (XARELTO) 20 Mg Tab, 1 TAB PO DAILY, #30 TAB 11 Refills 12/27/24 Past Medical History Patient Family History: Bone cancer G8 MOTHER Cardiovascular disease G8 BROTHER G8 SISTER Review of Systems Genitourinary: Hematuria H&P Exam Vital Signs Vital Signs Date Time Temp Pulse Resp B/P (MAP) Pulse Ox O2 Delivery O2 Flow Rate FiO2 12/28/24 09:58 127/80 12/28/24 09:00 98.3 63 17 97 98.3 12/28/24 08:00 Nasal Cannula* 2 28 General Appeara: Well developed, Well nourished, Normal Appearance Labs/Xrays [facility] [id number] [place] [id number] Ph: [phone] DIAGNOSTIC IMAGING Diagnostic Imaging Report : [id number] Signed PATIENT: KRIS HANSEN EACCT: [id number] UNIT: [id number] : 1935 LOC: [facility] ROOM / BED: [facility]T / B AGE / SEX: 89 / M ADM STATUS: ADM IN SERVICE 1143 ORDERING PHYSICIAN: ANGEL LUNA MD PROCEDURE(s): ABPL - CT AB PEL WO CON-NO ORAL OR IV REASON: Hematuria ORDER NUMBER(s): [id number], ACCESSION NUMBER(s): [id number] CT CT AB PEL WO CON-NO ORAL OR IV INDICATION: Hematuria EXAM DATE: 12/27/2024 11:59 AM COMPARISON: None RADIATION DOSE: CTDIvol: 17.87 mGy, DLP: 913.59 mGy*cm PROCEDURE: Helical CT images were obtained of the abdomen and pelvis without IV contrast Sagittal and coronal reconstructions are provided. ORAL CONTRAST: None. ADDITIONAL IMAGES / REFORMATS: None All CT scans at this medical facility are performed using dose modulation techniques as appropriate to a performed exam including the following: Automated exposure control was utilized; adjustment of the MA and/or KV according to patient size; and use of iterative reconstruction technique. FINDINGS: LUNG BASE: Emphysema changes is seen in the lungs. There is bibasilar atelectasis. Punctate calcifications are seen at the subpleural area of the lung anteriorly. LIVER: Normal. GALLBLADDER AND BILIARY TREE: There is a gallstone in the gallbladder.No intra- or extrahepatic biliary ductal dilation. PANCREAS: Normal. SPLEEN: Normal. BOWEL: There is severe colonic diverticulosis. ADRENALS: Normal. KIDNEYS AND URETER: Bilateral kidneys cysts are seen some of which are proteinaceous or hemorrhagic in nature and some of which contain punctate calcifications in the frausto. BLADDER: Normal. REPRODUCTIVE ORGANS: Enlarged prostate. LYMPH NODES:No lymphadenopathy. PERITONEUM: No ascites or free air. No other fluid collection. VESSELS: Scattered atherosclerotic calcifications are noted. 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 RETROPERITONEUM: Normal. ABDOMINAL WALL: There is a left lateral ventral abdominal wall hernia containing fat. There is a right lateral ventral abdominal wall hernia containing loops of nondilated bowel. BONES: Scattered osseous degenerative changes are noted. Irregular ossification of the sacrum and left hemipelvis which could be seen with osteopenia and possible sacral insufficiency fracture, with other etiologies not excluded. IMPRESSION: No acute intraabdominal abnormality. No kidney stones stones are seen. Cholelithiasis Bilateral kidneys cysts are seen some of which are proteinaceous or hemorrhagic in nature and some of which contain punctate calcifications in the frausto. 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 Irregular ossification of the sacrum and left hemipelvis which could be seen with osteopenia and possible sacral insufficiency fracture, with other etiologies not excluded. There is a left lateral ventral abdominal wall hernia containing fat. There is a right lateral ventral abdominal wall hernia containing loops of nondilated bowel. ATED BY: ROBE ESPINOZA MD DICTATED DATE/TIME: 12/27/24 1257 SIGNED BY: ROBE ESPINOZA MD SIGNED DATE/TIME: 12/27/24 1257 CC: Labs Test 12/28/24 05:52 12/27/24 12:22 12/27/24 03:10 12/27/24 02:15 Range/Units White Blood Count 8.1 4.4-10.8 10^3/uL Red Blood Count 4.85 4.5-5.90 10^6/uL Hemoglobin 14.3 13.5-17.5 g/dL Hematocrit 42.1 41.0-53.0 % Mean Corpuscular Volume 86.8 80.0-100.0 fL Mean Corpuscular Hemoglobin 29.5 28.0-32.0 pg Mean Corpuscular Hemoglobin Concent 33.9 32.0-36.0 g/dL Red Cell Distribution Width 15.1 H 11.8-14.3 % Platelet Count 129 L 140-450 10^3/uL Mean Platelet Volume 7.6 6.9-10.8 fL Neutrophils (%) (Auto) 86.4 H 37.0-80.0 % Lymphocytes (%) (Auto) 6.2 L 10.0-50.0 % Monocytes (%) (Auto) 6.6 0.0-12.0 % Eosinophils (%) (Auto) 0.5 0.0-7.0 % Basophils (%) (Auto) 0.3 0.0-2.0 % Neutrophils # (Auto) 7.0 1.6-8.6 10 ^3/uL Lymphocytes # (Auto) 0.5 0.4-5.4 10 ^3/uL Monocytes # (Auto) 0.5 0-1.3 10 ^3/uL Eosinophils # (Auto) 0 0-0.8 10 ^3/uL Basophils # (Auto) 0 0-0.2 10 ^3/uL Nucleated Red Blood Cells 0.0 % Sodium Level 139 136-145 mmol/L Potassium Level 3.5 3.5-5.1 mmol/L Chloride Level 107 98-107 mmol/L Carbon Dioxide Level 27 20-31 mmol/L Anion Gap 5 5-15 Blood Urea Nitrogen 17 9-23 mg/dL Creatinine 0.81 0.700-1.30 mg/dL Glomerular Filtration Rate Calc 84 >90 mL/min BUN/Creatinine Ratio 21.0 H 10.0-20.0 Serum Glucose 105 74-106 mg/dL Calcium Level 9.1 8.7-10.4 mg/dL Total Bilirubin 0.7 0.2-1.0 mg/dL Aspartate Amino Transferase (AST) 22 13-40 U/L Alanine Aminotransferase (ALT) 11 7-40 U/L Alkaline Phosphatase 230 H 46-116 U/L Total Protein 5.8 5.7-8.2 g/dL Albumin 3.6 3.2-4.8 g/dL Prothrombin Time 15.6 H 9.3-11.8 sec Prothrombin Time INR 1.54 H 0.9-1.15 Activated Partial Thromboplast Time 35.9 H 24.5-34.5 SEC Urine Color Colorless Yellow Urine Clarity Turbid H Clear Urine pH 6.5 5.0-9.0 Urine Specific [place] 1.010 1.001-1.035 Urine Protein Trace H Negative Urine Ketones Negative Negative Urine Blood 3+ H Negative /uL Urine Nitrite 2+ H Negative Urine Bilirubin Negative Negative Urine Urobilinogen Normal Negative mg/dL Urine Leukocyte Esterase 2+ Negative /uL Urine RBC 4702 0 - 3 /hpf Urine Microscopic WBC 18 H 0-3 /HPF Urine Squamous Epithelial Cells None seen <5 /hpf Urine Bacteria None seen None Seen /hpf Urine Mucus Few None Seen Urine Glucose Normal Normal mg/dL Hemoglobin A1c 5.7 <5.7 % A1C B-Type Natriuretic Peptide 92.59 0-100 pg/mL Microbiology Date/Time Source Procedure Growth Status 12/27/24 03:10 Voided Urine Urine Culture - Preliminary Resulted Assessment/Plan Problem List: (1) Cystitis with hematuria (2) Hx of group home use of blood thinners (3) Urinary tract infection (4) Generalized weakness Plan elderly male with gross hematuria in the settingof therapeutic anticoagulation and bilateral renal cysts, some of which are likely hemorrhagic. No evidence of obstructive uropathy or mass on imaging. bladder appears radiologically normal. mild leukocyturia and nitrites on UA may suggest concurrent UTI. Coagulopathy secondary to xarelto likely exacerbating bleeding. - hold xarelto - IVF to maintain hydration and prevent clot retention - trend H/H and platelets - urine culture - renal US to better characterize renal cysts cystoscopy TBA if no clinical improvement Plan discussed with: Other JENN SELBY NP Dec 28, 2024 13:17
--- NOTE | 2024-12-28 15:15 | DVH ---
INDICATION: hematuria, renal cysts TECHNIQUE: Multiple real-time sonographic images of the kidneys and bladder were obtained. COMPARISON: None FINDINGS: The right kidney measures 11 cm in length, which is normal in size. There is normal echogen icity of the right kidney. No hydronephrosis. The left kidney measures 11 cm in length, which is normal in size. There is normal echogenicity of th e left kidney. No hydronephrosis. Multiple renal cysts are noted measuring up to 3 cm in the right kidney and 1 cm in the left kidney. IMPRESSION: 1. Normal sonographic appearance of the kidneys. No hydronephrosis.
[2024-12-29] VITALS (8 sets, daily range): BP systolic 108–155; BP diastolic 53–86; PULSE 64–83; RESP 17–18; TEMP 96.1–98.7; O2SAT 95–97
--- NOTE | 2024-12-29 04:21 | DVH ---
MRI Abdomen and pelvis, without IV Contrast Exam Date: 12/28/2024 04:19 PM Comparison: CT dated 12/27/2024 History: Hematuria Technique: Multisequence multiplanar MRI images were obtained of the abomen and pelvis. Findings: Liver: The liver is normal in size without focal lesions. Normal liver contour. Spleen: Unremarkable. Pancreas: The pancreas is normal in appearance without focal lesions. Gallbladder and ducts: Cholelithiasis noted without secondary findings of cholecystitis or biliary ob struction. The cystic duct, right and left hepatic ducts, common hepatic duct, and common bile ducts are unremarkable. The pancreatic duct is within normal limits. Adrenal glands: Unremarkable. Kidneys: No hydronephrosis. Bilateral renal cysts. Visualized bowel: Diverticulosis. Vasculature: Unremarkable. Lymphadenopathy: No evidence for lymphadenopathy. Ascites: Absent. Musculoskeletal: Bone marrow signal is normal. Bladder: Unremarkable Reproductive organs: Prostate is enlarged measuring 6.3 cm, transverse. IMPRESSION: Prostatomegaly. Bilateral renal cysts. Cholelithiasis noted without secondary findings of cholecystitis or biliary obstruction.
[2024-12-29 12:04] LABS: Hepatitis A Ab IgM Negative; Hepatitis B Core IgM Negative (Negative); Hepatitis B Surface Antigen Negative (Negative); Hepatitis C Antibody Negative (Negative)
--- NOTE | 2024-12-29 12:58 | DVHPN2 ---
Progress Note - Dictate Date Seen: Dec 29, 2024 Has the PT tested + for MRSA If YES, has PT been informed?: No Medical Necessity Reason Pt with a Central, PICC or Fol: No vital signs Vital Sign Date Time Temp Pulse Resp B/P (MAP) Pulse Ox O2 Delivery O2 Flow Rate FiO2 12/29/24 09:00 96.1 70 17 121/71 (88) 96 96.1 12/29/24 07:30 Nasal Cannula* 2 28 Total Intake and Output 12/28/24 12/28/24 12/29/24 15:00 23:00 07:00 Intake Total 450 ml 500 ml Output Total 800 ml 600 ml Balance -350 ml -100 ml medications Current Medications Medications Dose Ordered Sig/Brandy Route Start Time Stop Time Status Last Admin Dose Admin Ceftriaxone Sodium 50 ml @ 100 mls/hr DAILY@09 IV 12/27/24 09:00 12/29/24 08:45 100 MLS/HR Lisinopril 20 mg DAILY PO 12/27/24 10:00 12/29/24 08:59 20 MG Tamsulosin HCl 0.4 mg QPM PO 12/27/24 18:00 12/28/24 18:26 0.4 MG Atorvastatin Calcium 40 mg HS PO 12/27/24 22:00 12/28/24 21:12 40 MG Bumetanide 0.5 mg BIDD PO 12/27/24 06:00 12/29/24 05:27 0.5 MG Sodium Chloride 10 ml Q8HR IV 12/27/24 06:00 12/29/24 05:28 10 ML Acetaminophen/ Hydrocodone Bitart 1 tab Q4HP PRN PO 12/27/24 05:00 Ondansetron HCl 4 mg Q4HP PRN IV 12/27/24 05:00 12/27/24 06:13 4 MG Docusate Sodium 100 mg BIDPRN PRN PO 12/27/24 05:00 Acetaminophen 650 mg Q6HP PRN PO 12/27/24 05:00 12/27/24 06:13 650 MG Nitroglycerin 0.4 mg Q5MINP PRN SL 12/27/24 05:30 Morphine Sulfate 2 mg Q30M PRN IV 12/27/24 05:30 objective urine is clear now laboratory and microbiology Laboratory Tests 12/28/24 05:52 Test 12/28/24 05:52 Range/Units Serum Glucose 105 74-106 mg/dL Assessment/Plan cleared from urology standpoint outpt f/u 2 weeks needs cysto Problems(with codes): (1) Cystitis with hematuria (2) Hx of correction use of blood thinners (3) Urinary tract infection (4) Generalized weakness Prognosis good Plan discussed with: Patient JENN SELBY NP Dec 29, 2024 12:58
--- NOTE | 2024-12-29 13:45 | DVHPN2 ---
Reviewed: Care Plan, H&P, Labs, Medications, Previous Orders, Radiology Changes from previous H/P or p: No Changes Eyes: No Pain, No Vision change, No Conjunctivae inflammation, No Eyelid inflammation, No Other, No Redness ENT: No Ear pain, No Ear discharge, No Nose pain, No Nose discharge, No Nose congestion, No Mouth pain, No Mouth swelling, No Throat pain, No Throat swelling, No Other Cardiovascular: No Chest Pain, No Palpitations, No Orthopnea, No Paroxysmal Noc. Dyspnea, No Edema, No Lt Headedness, No Other Respiratory: No Cough, No Dry, No Shortness of breath, No SOB with excertion, No Wheezing, No Hemoptysis, No Pleuritic Pain, No Sputum, No Other Gastrointestinal: No Nausea, No Vomiting, No Abdominal Pain, No Diarrhea, No Constipation, No Melena, No Hematochezia, No Other Genitourinary: Dysuria; No Frequency, No Incontinence; Hematuria; No Retention, No Other Musculoskeletal: No other, No neck pain, No shoulder pain, No arm pain, No back pain, No hand pain, No leg pain, No foot pain Skin: No Rash, No Lesions, No Jaundice, No Bruising, No Other Objective Vitals Vital Signs Date Time Temp Pulse Resp B/P (MAP) Pulse Ox O2 Delivery O2 Flow Rate FiO2 12/29/24 09:00 96.1 70 17 121/71 (88) 96 96.1 12/29/24 07:30 Nasal Cannula* 2 28 Intake/Output Intake and Output 12/29/24 07:00 Intake Total 950 ml Output Total 1400 ml Balance -450 ml Intake Oral 950 ml Output Urine Total 1400 ml Medications Current Medications Medications Dose Ordered Sig/Brandy Route Start Time Stop Time Status Last Admin Dose Admin Ceftriaxone Sodium 50 ml @ 100 mls/hr DAILY@09 IV 12/27/24 09:00 12/29/24 08:45 100 MLS/HR Lisinopril 20 mg DAILY PO 12/27/24 10:00 12/29/24 08:59 20 MG Tamsulosin HCl 0.4 mg QPM PO 12/27/24 18:00 12/28/24 18:26 0.4 MG Atorvastatin Calcium 40 mg HS PO 12/27/24 22:00 12/28/24 21:12 40 MG Bumetanide 0.5 mg BIDD PO 12/27/24 06:00 12/29/24 05:27 0.5 MG Sodium Chloride 10 ml Q8HR IV 12/27/24 06:00 12/29/24 05:28 10 ML Acetaminophen/ Hydrocodone Bitart 1 tab Q4HP PRN PO 12/27/24 05:00 Ondansetron HCl 4 mg Q4HP PRN IV 12/27/24 05:00 12/27/24 06:13 4 MG Docusate Sodium 100 mg BIDPRN PRN PO 12/27/24 05:00 Acetaminophen 650 mg Q6HP PRN PO 12/27/24 05:00 12/27/24 06:13 650 MG Nitroglycerin 0.4 mg Q5MINP PRN SL 12/27/24 05:30 Morphine Sulfate 2 mg Q30M PRN IV 12/27/24 05:30 Laboratory Results Laboratory Tests 12/28/24 05:52 Urinalysis Test 12/27/24 03:10 Urine Color Colorless (Yellow) Urine Clarity Turbid (Clear) H Urine pH 6.5 (5.0-9.0) Urine Specific [place] 1.010 (1.001-1.035) Urine Protein Trace (Negative) H Urine Ketones Negative (Negative) Urine Blood 3+ /uL (Negative) H Urine Nitrite 2+ (Negative) H Urine Bilirubin Negative (Negative) Urine Urobilinogen Normal mg/dL (Negative) Urine Leukocyte Esterase 2+ /uL (Negative) Urine RBC 4702 /hpf (0 - 3) Urine Microscopic WBC 18 /HPF (0-3) H Urine Squamous Epithelial Cells None seen /hpf (<5) Urine Bacteria None seen /hpf (None Seen) Urine Mucus Few (None Seen) Urine Glucose Normal mg/dL (Normal) Microbiology Microbiology Date/Time Source Procedure Growth Status 12/27/24 03:10 Voided Urine Urine Culture - Final Escherichia coli Complete Labs and/or images reviewed: Labs reviewed by me, Image(s) reviewed by me Assessment/Plan Assessment/Plan Hematuria urology consult for Dr. 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 daily Hypertension: Lisinopril Hypercholesterolemia: Lipitor On magnesium oxide 500 mg p.o. 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 [employer] Officer: Dr Delarosa Plan discussed with: Patient Date of Service: Dec 29, 2024 Billing Provider: ANGEL LUNA MD Common Visit Codes: [id number] INP/OBS CARE(HIGH) ANGEL LUNA MD Dec 29, 2024 13:45
[2024-12-29] MEDS: DOCUSATE SOD 100 MG CAP PO PRN (21:58)
[2024-12-30] VITALS (8 sets, daily range): BP systolic 112–133; BP diastolic 63–81; PULSE 55–78; RESP 17–18; TEMP 97.3–98.3; O2SAT 94–99
--- NOTE | 2024-12-30 13:27 | DVHPN2 ---
Reviewed: Care Plan, H&P, Labs, Medications, Previous Orders, Radiology Changes from previous H/P or p: No Changes Eyes: No Pain, No Vision change, No Conjunctivae inflammation, No Eyelid inflammation, No Other, No Redness ENT: No Ear pain, No Ear discharge, No Nose pain, No Nose discharge, No Nose congestion, No Mouth pain, No Mouth swelling, No Throat pain, No Throat swelling, No Other Cardiovascular: No Chest Pain, No Palpitations, No Orthopnea, No Paroxysmal Noc. Dyspnea, No Edema, No Lt Headedness, No Other Respiratory: No Cough, No Dry, No Shortness of breath, No SOB with excertion, No Wheezing, No Hemoptysis, No Pleuritic Pain, No Sputum, No Other Gastrointestinal: No Nausea, No Vomiting, No Abdominal Pain, No Diarrhea, No Constipation, No Melena, No Hematochezia, No Other Genitourinary: Dysuria; No Frequency, No Incontinence; Hematuria; No Retention, No Other Musculoskeletal: No other, No neck pain, No shoulder pain, No arm pain, No back pain, No hand pain, No leg pain, No foot pain Skin: No Rash, No Lesions, No Jaundice, No Bruising, No Other Objective Vitals Vital Signs Date Time Temp Pulse Resp B/P (MAP) Pulse Ox O2 Delivery O2 Flow Rate FiO2 12/30/24 09:32 120/63 12/30/24 09:00 97.6 63 17 98 97.6 12/30/24 08:00 Room Air* 0 21 Intake/Output Intake and Output 12/30/24 07:00 Intake Total 1324 ml Output Total 1925 ml Balance -601 ml Intake Oral 1274 ml IV Total 50 ml Output Urine Total 1925 ml Medications Current Medications Medications Dose Ordered Sig/Brandy Route Start Time Stop Time Status Last Admin Dose Admin Ceftriaxone Sodium 50 ml @ 100 mls/hr DAILY@09 IV 12/27/24 09:00 12/30/24 09:31 100 MLS/HR Lisinopril 20 mg DAILY PO 12/27/24 10:00 12/30/24 09:32 20 MG Tamsulosin HCl 0.4 mg QPM PO 12/27/24 18:00 12/29/24 16:53 0.4 MG Atorvastatin Calcium 40 mg HS PO 12/27/24 22:00 12/29/24 21:58 40 MG Bumetanide 0.5 mg BIDD PO 12/27/24 06:00 12/30/24 05:15 0.5 MG Sodium Chloride 10 ml Q8HR IV 12/27/24 06:00 12/30/24 05:18 10 ML Acetaminophen/ Hydrocodone Bitart 1 tab Q4HP PRN PO 12/27/24 05:00 Ondansetron HCl 4 mg Q4HP PRN IV 12/27/24 05:00 12/27/24 06:13 4 MG Docusate Sodium 100 mg BIDPRN PRN PO 12/27/24 05:00 12/29/24 21:58 100 MG Acetaminophen 650 mg Q6HP PRN PO 12/27/24 05:00 12/30/24 00:49 650 MG Nitroglycerin 0.4 mg Q5MINP PRN SL 12/27/24 05:30 Morphine Sulfate 2 mg Q30M PRN IV 12/27/24 05:30 Laboratory Results Laboratory Tests 12/28/24 05:52 Urinalysis Test 12/27/24 03:10 Urine Color Colorless (Yellow) Urine Clarity Turbid (Clear) H Urine pH 6.5 (5.0-9.0) Urine Specific [place] 1.010 (1.001-1.035) Urine Protein Trace (Negative) H Urine Ketones Negative (Negative) Urine Blood 3+ /uL (Negative) H Urine Nitrite 2+ (Negative) H Urine Bilirubin Negative (Negative) Urine Urobilinogen Normal mg/dL (Negative) Urine Leukocyte Esterase 2+ /uL (Negative) Urine RBC 4702 /hpf (0 - 3) Urine Microscopic WBC 18 /HPF (0-3) H Urine Squamous Epithelial Cells None seen /hpf (<5) Urine Bacteria None seen /hpf (None Seen) Urine Mucus Few (None Seen) Urine Glucose Normal mg/dL (Normal) Microbiology Microbiology Date/Time Source Procedure Growth Status 12/27/24 03:10 Voided Urine Urine Culture - Final Escherichia coli Complete Labs and/or images reviewed: Labs reviewed by me, Image(s) reviewed by me Assessment/Plan Assessment/Plan Hematuria urology consult for Dr. 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 daily Hypertension: Lisinopril Hypercholesterolemia: Lipitor On magnesium oxide 500 mg p.o. 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 Lock Arc Welder Apprentice: Dr Delarosa Will DC tomorrow Plan discussed with: Patient Date of Service: Dec 30, 2024 Billing Provider: ANGEL LUNA MD Common Visit Codes: [id number] INP/OBS CARE(HIGH) ANGEL LUNA MD Dec 30, 2024 13:27
[2024-12-30 15:20] LABS: Base Excess 1.1 mmol/L (-2.0-3.0)
[2024-12-30] MEDS: LACTULOSE 20Gm/30ML SOLN PO ONE (17:50)
[2024-12-31 00:55] VITALS: BP 129/82; PULSE 76; RESP 17; TEMP 97.3; O2SAT 97
[2024-12-31 05:00] VITALS: BP 115/77; PULSE 74; RESP 17; TEMP 97.1; O2SAT 97
[2024-12-31 08:00] VITALS: PULSE 70; RESP 18; O2SAT 94
[2024-12-31 08:45] VITALS: BP 130/77; PULSE 69; RESP 16; TEMP 97.6; O2SAT 97
[2024-12-31] MEDS ORDERED: CIPR-173 PO (11:54)
[2024-12-31] MEDS ORDERED: TRAM-626 PO (11:54)
[2024-12-31 12:40] VITALS: BP 120/87; PULSE 67; RESP 15; TEMP 98.4; O2SAT 97
--- NOTE | 2024-12-31 13:19 | DVHDS2 ---
Discharge Summary Date of Admission December 27, 2024 at 05:30 Date of Discharge: Dec 31, 2024 Admitting Diagnosis Hematuria Wounds: None Labs/Diagnostic Data: Laboratory Results Test 12/30/24 14:41 12/28/24 05:52 12/27/24 12:22 12/27/24 03:10 Blood Gas Specimen Type Arterial Blood Gas Sample Site Right radial Blood Gas Patient Temperature 37.0 Arterial Blood Date Drawn [id number] Arterial Blood pH 7.451 (7.350-7.450) Arterial Blood Partial Pressure CO2 36.4 mmHg (35.0-48.0) Arterial Blood Partial Pressure O2 63.7 mmHg (83.0-108.0) Arterial Blood HCO3 24.8 mmol/L (21.0-28.0) Arterial Blood Oxygen Saturation 92.4 % (94.0-98.0) Arterial Blood Base Excess 1.1 mmol/L (-2.0-3.0) Arterial Blood Oxyhemoglobin 91.3 % (94.0-98.0) Arterial Blood Carboxyhemoglobin 0.9 % (0.5-1.5) Arterial Blood Methemoglobin 0.3 % (0.0-1.5) Aries Test Yes Blood Gas Total Hemoglobin 14.60 g/dL (13.5-17.5) Blood Gas Liter Flow 0.00 Blood Gas Modality Room air FiO2 % 21.0 White Blood Count 8.1 10^3/uL (4.4-10.8) Red Blood Count 4.85 10^6/uL (4.5-5.90) Hemoglobin 14.3 g/dL (13.5-17.5) Hematocrit 42.1 % (41.0-53.0) Mean Corpuscular Volume 86.8 fL (80.0-100.0) Mean Corpuscular Hemoglobin 29.5 pg (28.0-32.0) Mean Corpuscular Hemoglobin Concent 33.9 g/dL (32.0-36.0) Red Cell Distribution Width 15.1 % (11.8-14.3) Platelet Count 129 10^3/uL (140-450) Mean Platelet Volume 7.6 fL (6.9-10.8) Neutrophils (%) (Auto) 86.4 % (37.0-80.0) Lymphocytes (%) (Auto) 6.2 % (10.0-50.0) Monocytes (%) (Auto) 6.6 % (0.0-12.0) Eosinophils (%) (Auto) 0.5 % (0.0-7.0) Basophils (%) (Auto) 0.3 % (0.0-2.0) Neutrophils # (Auto) 7.0 10 ^3/uL (1.6-8.6) Lymphocytes # (Auto) 0.5 10 ^3/uL (0.4-5.4) Monocytes # (Auto) 0.5 10 ^3/uL (0-1.3) Eosinophils # (Auto) 0 10 ^3/uL (0-0.8) Basophils # (Auto) 0 10 ^3/uL (0-0.2) Nucleated Red Blood Cells 0.0 % Sodium Level 139 mmol/L (136-145) Potassium Level 3.5 mmol/L (3.5-5.1) Chloride Level 107 mmol/L (98-107) Carbon Dioxide Level 27 mmol/L (20-31) Anion Gap 5 (5-15) Blood Urea Nitrogen 17 mg/dL (9-23) Creatinine 0.81 mg/dL (0.700-1.30) Glomerular Filtration Rate Calc 84 mL/min (>90) BUN/Creatinine Ratio 21.0 (10.0-20.0) Serum Glucose 105 mg/dL (74-106) Calcium Level 9.1 mg/dL (8.7-10.4) Total Bilirubin 0.7 mg/dL (0.2-1.0) Aspartate Amino Transferase (AST) 22 U/L (13-40) Alanine Aminotransferase (ALT) 11 U/L (7-40) Alkaline Phosphatase 230 U/L (46-116) Total Protein 5.8 g/dL (5.7-8.2) Albumin 3.6 g/dL (3.2-4.8) Prothrombin Time 15.6 sec (9.3-11.8) Prothrombin Time INR 1.54 (0.9-1.15) Activated Partial Thromboplast Time 35.9 SEC (24.5-34.5) Hepatitis A IgM Antibody Negative Hepatitis B Surface Antigen Negative (Negative) Hepatitis B Core IgM Antibody Negative (Negative) Hepatitis C Antibody Negative (Negative) Urine Color Colorless (Yellow) Urine Clarity Turbid (Clear) Urine pH 6.5 (5.0-9.0) Urine Specific [place] 1.010 (1.001-1.035) Urine Protein Trace (Negative) Urine Ketones Negative (Negative) Urine Blood 3+ /uL (Negative) Urine Nitrite 2+ (Negative) Urine Bilirubin Negative (Negative) Urine Urobilinogen Normal mg/dL (Negative) Urine Leukocyte Esterase 2+ /uL (Negative) Urine RBC 4702 /hpf (0 - 3) Urine Microscopic WBC 18 /HPF (0-3) Urine Squamous Epithelial Cells None seen /hpf (<5) Urine Bacteria None seen /hpf (None Seen) Urine Mucus Few (None Seen) Urine Glucose Normal mg/dL (Normal) Test 12/27/24 02:15 Hemoglobin A1c 5.7 % A1C (<5.7) B-Type Natriuretic Peptide 92.59 pg/mL (0-100) Other Laboratory Tests 12/28/24 05:52 Brief Hx & Hospital Course: 69-year-old male with a history of AFib hypertension hypercholesterolemia BPH came in for hematuria seen by Urology Dr. Valerio. Refused outpatient cystoscopy in two weeks. 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 2021. Patient also has stents in the left lower extremity placed in July 2022 for left popliteal arterial aneurysm. Patient being discharged home on Cipro and tramadol for the UTI. He will follow up with Urology Dr. Currie in two weeks Consults/Reason for consult Urology Dr. Currie Operations or Procedures CT abdomen pelvis without contrast Condition at Discharge: Fair Final Diagnosis/Problems List Hematuria urology consult for Dr. 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 daily Hypertension: Lisinopril Hypercholesterolemia: Lipitor On magnesium oxide 500 mg p.o. 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 Currie in two weeks for outpatient cystoscopy Continue all your previous home medications Medications: Cipro Tramadol Transmitted to pharmacy 35 (Time taken for discharge summary 35 minutes) Discharge Statement: "Patient was advised to return to the ER or call 911 if any headaches, dizziness, shortness of breath, chest pain, abdominal pain, bleeding, fevers, or worsening of medical condition. Patient was counseled about treatment plan, medications, possible side effects, patientverbalized understanding. All questions were answered to the best of my ability. This discharge took greater then 30 minutes in planning, reviewing documentation, counseling the patient, and discussing with other team members." ASSESSMENT ASSESSMENT Hospital Course Improved Assessment Hematuria urology consult for Dr. 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 daily Hypertension: Lisinopril Hypercholesterolemia: Lipitor On magnesium oxide 500 mg p.o. 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
== END 2024-12-31 16:03 | disposition home health service (06) | DRG 689 ==
LOC: ER 02:00 → EDBD 02:00 → OVERFLOW 05:30 → TELE-WESTW 05:31
PROVIDERS: ADMIT Family Medicine; ATTEND Family Medicine
DX: N30.01 Acute cystitis with hematuria (principal); J96.00 Acute respiratory failure, unspecified whether with hypoxia or hypercapnia; E78.00 Pure hypercholesterolemia, unspecified; I10 Essential (primary) hypertension; I48.91 Unspecified atrial fibrillation; N40.0 Benign prostatic hyperplasia without lower urinary tract symptoms; B96.20 Unspecified Escherichia coli [E. coli] as the cause of diseases classified elsewhere; I72.8 Aneurysm of other specified arteries; Z89.511 Acquired absence of right leg below knee; Z79.899 Other long term (current) drug therapy; Z79.01 Long term (current) use of anticoagulants
CPT/HCPCS: 36415; 36600; 72195; 74176; 74181; 76775; 80053; 80074; 81001; 82805; 83036; 83880; 85025; 85610; 85730; 87086; 87088; 87186; 96365; G0378; J2405